=== PATIENT | female | born 1960 | race African-American/Black ===

== ENCOUNTER 2017-01-08 01:37 | Emergency (ER) | payer MEDICARE ==
[~2017-01-08] VITALS: Ht 154.9 cm; Wt 86.0 kg
[2017-01-08 06:00] VITALS: BP 135/77
== END 2017-01-08 06:00 | disposition home or self-care (01) ==
LOC: ER 01:37
DX: J06.9 Acute upper respiratory infection, unspecified (principal); J44.9 Chronic obstructive pulmonary disease, unspecified; I10 Essential (primary) hypertension; E78.00 Pure hypercholesterolemia, unspecified; E11.9 Type 2 diabetes mellitus without complications; Z98.890 Other specified postprocedural states; Z96.659 Presence of unspecified artificial knee joint; Z88.8 Allergy status to other drugs, medicaments and biological substances; Z88.6 Allergy status to analgesic agent
CPT/HCPCS: 71020; 99284